=== PATIENT | male | born 1990 | race African-American/Black ===

== ENCOUNTER 2023-10-07 16:50 | Emergency (ER) | payer MEDICAID ==
[~2023-10-07] VITALS: Ht 177.8 cm; Wt 75.0 kg
[2023-10-07 16:52] VITALS: O2SAT 100
[2023-10-07] MEDS: LORAZEPAM 2MG/ML INJ IV STA (18:23)
[2023-10-07] MEDS: SODIUM CHLORIDE 0.9% 1,000 ML IV ONE (18:23)
[2023-10-07] MEDS: ONDANSETRON HCL 4MG/2ML INJ IV ONE (18:23)
[2023-10-07 18:33] LABS: BASOPHILS % 0.8 % (0.0-2.0); EOSINOPHILS % 0.8 % (0.0-5.0); HEMATOCRIT. 46.1 % (42.0-52.0); HEMOGLOBIN. 15.5 g/dL (14.0-18.0); LYMPHOCYTES % 25.2 % (20.0-50.0); MEAN CORPUSCULAR HEMOGLOBIN 29.6 pg (28.0-32.0); MEAN CORPUSCULAR HGB CONC 33.6 g/dL (31.0-37.0); MEAN CORPUSCULAR VOLUME 88.2 fL (80.0-94.0); MEAN PLATELET VOLUME 6.9 fl (7.4-10.4); MONOCYTES % 8.3 % (2.0-8.0); NEUTROPHILS % 64.9 % (40.0-76.0); PLATELET 341 x1000/uL (130-400); RED BLOOD CELL COUNT 5.23 mill/uL (4.7-6.1); RED CELL DISTRIBUTION WIDTH 13.4 % (11.6-14.6); WHITE BLOOD COUNT 7.2 x1000/uL (4.5-11.0)
[2023-10-07 18:44] LABS: CHLORIDE 105 mEq/L (98-107)
[2023-10-07 18:45] LABS: CARBON DIOXIDE 28 mEq/L (21-32); POTASSIUM 3.6 mEq/L (3.5-5.1); SODIUM 139 mEq/L (136-145)
[2023-10-07 18:46] LABS: CALCIUM 9.6 mg/dL (8.7-10.4)
[2023-10-07 18:50] LABS: CREATININE 1.3 mg/dL (0.6-1.3); GLUCOSE 115 mg/dL (70-105)
[2023-10-07 18:51] LABS: UREA NITROGEN BLOOD 11 mg/dL (9-23)
[2023-10-07 18:52] LABS: ACETAMINOPHEN < 2 ug/mL (10-30); ALANINE AMINOTRANSFERASE 25 IU/L (10-49); ALBUMIN 4.4 g/dL (3.2-4.8); ASPARTATE AMINOTRANSFERASE 30 IU/L (<34)
[2023-10-07 18:53] LABS: PROTEIN TOTAL 7.1 g/dL (6.0-8.3)
[2023-10-07 18:56] LABS: TROPONIN I HIGH SENSITIVITY < 4 ng/L (3.0-53)
[2023-10-07 19:26] LABS: ETHANOL BLOOD < 10 mg/dL (<10)
[2023-10-07 23:00] VITALS: BP 132/87; PULSE 98; RESP 17; TEMP 98.5
== END 2023-10-07 23:20 ==
LOC: ER 16:50
DX: T43.651A Poisoning by methamphetamines accidental (unintentional), initial encounter (principal); R61 Generalized hyperhidrosis; R11.0 Nausea; F14.10 Cocaine abuse, uncomplicated; Y92.89 Other specified places as the place of occurrence of the external cause
CPT/HCPCS: 80053; 80307; 80329; 80320; 85025; 84484; 36415; 93005; 96374; 96375; 99284; J2060; J2405; J7030; Z7610 ×3; G0480